=== PATIENT | female | born 1955 | race Caucasian/White ===

== ENCOUNTER 2020-01-10 15:03 | Inpatient (IN) | payer OTHER ==
[~2020-01-10] VITALS: Ht 170.2 cm; Wt 115.2 kg
--- NOTE | 2020-01-10 16:07 | NUR ---
LATE ENTRY DUE TO PATIENT CARE: THIS IS A 64 YO FEMALE COMING IN FOR RIGHT LOWER LEG SWELLING/ERYTHEMA/BLISTERING STARTING TUESDAY AND WORSENING OVER THE WEEKEND. SYMPTOMS STARTED AFTER PLASMA DONATION TUESDAY, PATIENT STATES "THEY FORGOT TO RETURN THE RED BLOOD CELLS AND SALINE". PULSE NOTED VIA DOPPLER, SENSATION AND MOVEMENT INTACT. DENIES ANY MEDICAL HX. MONITORING IN PLACE. VSS, NADN. CALL LIGHT IN REACH. PIV PLACED, LABS AND FIRST SET OF CULTURES DRAWN
[2020-01-10] MEDS ORDERED: SODIUM CHLORIDE FLUSH 10ML SYR IVF ONE (17:00)
[2020-01-10] MEDS ORDERED: PIPERACILLIN/TAZO/PMX 3.375GM 50 ML IVPB ONE (17:00)
--- NOTE | 2020-01-10 17:00 | NUR ---
DELAY IN MD ORDERS, WAITING FOR 2 SETS OF XULTURES TO BE DRAWN PRIOR TO ABX ADMIN
[2020-01-10 17:09] LABS: BASOPHILS # (AUTO) 0.03 x10^3/uL (0-0.1); BASOPHILS % (AUTO) 0 % (0-1); EOSINOPHILS # (AUTO) 0.21 x10^3/uL (0-0.4); EOSINOPHILS % (AUTO) 2 % (1-7); LYMPHOCYTES # (AUTO) 0.96 x10^3/uL (1-3.4); LYMPHOCYTES % (AUTO) 10 % (22-44); MD NO; MEAN CORPUSCULAR HGB CONC 32.8 g/dL (32.4-35.8); MEAN CORPUSCULAR VOLUME 91.2 fL (80-100); MEAN PLATELET VOLUME 8.4 fL (7.4-10.4); MONOCYTES # (AUTO) 0.46 x10^3/uL (0.2-0.8); MONOCYTES % (AUTO) 5 % (2-9); NEUTROPHILS # (AUTO) 7.56 x10^3/uL (1.8-6.8); NEUTROPHILS % (AUTO) 82 % (42-75); PLATELET COUNT 174 x10^3/uL (130-400); RED BLOOD COUNT 3.84 x10^6/uL (3.82-5.3); RED CELL DISTRIBUTION WIDTH 15.5 % (9.6-15.2)
[2020-01-10 17:22] LABS: ALBUMIN 2.1 g/dL (3.4-5.0); ANION GAP 7 mmol/L (5-15); CALCIUM 8.8 mg/dL (8.5-10.1); CHLORIDE 106 mmol/L (98-107); CREATININE 1.02 mg/dL (0.55-1.02)
[2020-01-10] MEDS ORDERED: PIPERACILLIN/TAZO/PMX 3.375GM 50 ML ONE (17:26)
--- NOTE | 2020-01-10 17:57 | NUR ---
BLOOD CULTURES X2 DRAWN PRIOR TO ABX ADMIN
--- NOTE | 2020-01-10 18:52 | NUR ---
Report given to BIPIN Gallardo. Plan of care discussed
[2020-01-10] MEDS ORDERED: SODIUM CHLORIDE 0.9% 1,000 ML IV ONE (19:01)
--- NOTE | 2020-01-10 19:16 | NUR ---
Report received from BIPIN Oliveira. This RN to assume care.
[2020-01-10] MEDS ORDERED: SODIUM CHLORIDE FLUSH 10ML SYR IVF PRN (19:30)
[2020-01-10] MEDS ORDERED: VANCOMYCIN PER PHARMACY MC PRN (20:00)
[2020-01-10] MEDS ORDERED: DOCUSATE 100 MG CAPSULE PO PRN (20:00)
[2020-01-10] MEDS ORDERED: LABETALOL 5MG/ML, 20ML IVPush PRN (20:00)
[2020-01-10] MEDS ORDERED: BISACODYL 10 MG SUPP PR PRN (20:00)
[2020-01-10] MEDS ORDERED: KETOROLAC 30 MG/1 ML IV PRN (20:00)
[2020-01-10] MEDS ORDERED: POLYETHYLENE GLYCOL 17 GM PACKET PO PRN (20:00)
--- NOTE | 2020-01-10 20:08 | NUR ---
Provided meal tray to patient.
--- NOTE | 2020-01-10 21:12 | NUR ---
Assisted patient to bedside commode. Patient able to bear weight successfully on left leg and slide right leg without assistance.
--- NOTE | 2020-01-10 21:40 | NUR ---
Report given to BIPIN Owens. Patient transferred to room 373.
[2020-01-10 22:48] VITALS: BP 109/73
[2020-01-10] MEDS: HEPARIN 5,000 UNITS/ML, 1ML SQ SCH (22:50)
[2020-01-10] MEDS: IBUPROFEN 600 MG TABLET PO PRN (22:50)
[2020-01-10] MEDS ORDERED: PHARMACOKINETIC MONITORING MC PRN (23:00)
[2020-01-10] MEDS: CEFTRIAXONE PMX 1GM/50ML 50 ML IV SCH (23:16)
[2020-01-10] MEDS ORDERED: VANCOMYCIN 2,500 MG in SODIUM CHLORIDE 0.9% 500 ML IV ONE (23:30)
[2020-01-11] MEDS ORDERED: MAGN400T36 PO (01:34)
[2020-01-11] MEDS ORDERED: LORA-856 PO (01:37)
[2020-01-11] MEDS ORDERED: CHOL500045 PO (01:39)
[2020-01-11] MEDS ORDERED: ASCO500C10 PO (01:41)
[2020-01-11] MEDS: ACETAMINOPHEN 325 MG TABLET PO PRN ×3 (01:52→22:08)
[2020-01-11 01:55] VITALS: BP 115/76
[2020-01-11] MEDS ORDERED: VITA100T PO (04:08)
[2020-01-11] MEDS ORDERED: MULT-508 PO (04:08)
[2020-01-11] MEDS ORDERED: VITA100C8 PO (04:08)
[2020-01-11 05:46] LABS: BASOPHILS # (AUTO) 0.02 x10^3/uL (0-0.1); BASOPHILS % (AUTO) 0 % (0-1); EOSINOPHILS # (AUTO) 0.09 x10^3/uL (0-0.4); EOSINOPHILS % (AUTO) 1 % (1-7); LYMPHOCYTES # (AUTO) 0.81 x10^3/uL (1-3.4); LYMPHOCYTES % (AUTO) 9 % (22-44); MD NO; MEAN CORPUSCULAR HGB CONC 33.3 g/dL (32.4-35.8); MEAN CORPUSCULAR VOLUME 90.1 fL (80-100); MEAN PLATELET VOLUME 8.2 fL (7.4-10.4); MONOCYTES # (AUTO) 0.46 x10^3/uL (0.2-0.8); MONOCYTES % (AUTO) 5 % (2-9); NEUTROPHILS # (AUTO) 7.66 x10^3/uL (1.8-6.8); NEUTROPHILS % (AUTO) 85 % (42-75); PLATELET COUNT 171 x10^3/uL (130-400); RED BLOOD COUNT 3.46 x10^6/uL (3.82-5.3); RED CELL DISTRIBUTION WIDTH 15.3 % (9.6-15.2)
[2020-01-11 05:59] LABS: ANION GAP 6 mmol/L (5-15); CHLORIDE 108 mmol/L (98-107)
[2020-01-11 06:00] LABS: CREATININE 0.96 mg/dL (0.55-1.02)
[2020-01-11] MEDS: HEPARIN 5,000 UNITS/ML, 1ML SQ SCH ×3 (06:05→22:52)
[2020-01-11 06:26] LABS: CALCIUM 8.3 mg/dL (8.5-10.1)
[2020-01-11 07:35] VITALS: BP 115/73
[2020-01-11] MEDS: IBUPROFEN 600 MG TABLET PO PRN ×2 (12:05→19:40)
[2020-01-11 12:31] VITALS: BP 126/85
[2020-01-11 21:00] VITALS: BP 125/74
[2020-01-11] MEDS: CEFTRIAXONE PMX 1GM/50ML 50 ML IV SCH (22:52)
[2020-01-12 02:29] VITALS: BP 106/64
[2020-01-12] MEDS: IBUPROFEN 600 MG TABLET PO PRN ×3 (04:30→19:56)
[2020-01-12 05:15] LABS: ANION GAP 7 mmol/L (5-15); CALCIUM 8.3 mg/dL (8.5-10.1); CHLORIDE 106 mmol/L (98-107); CREATININE 0.94 mg/dL (0.55-1.02)
[2020-01-12 05:17] LABS: BASOPHILS # (AUTO) 0.01 x10^3/uL (0-0.1); BASOPHILS % (AUTO) 0 % (0-1); EOSINOPHILS # (AUTO) 0.06 x10^3/uL (0-0.4); EOSINOPHILS % (AUTO) 1 % (1-7); LYMPHOCYTES # (AUTO) 1.15 x10^3/uL (1-3.4); LYMPHOCYTES % (AUTO) 14 % (22-44); MD NO; MEAN CORPUSCULAR HEMOGLOBIN 29.6 pg (27.0-34.8); MEAN CORPUSCULAR HGB CONC 33.2 g/dL (32.4-35.8); MEAN CORPUSCULAR VOLUME 89.3 fL (80-100); MEAN PLATELET VOLUME 7.8 fL (7.4-10.4); MONOCYTES # (AUTO) 0.63 x10^3/uL (0.2-0.8); MONOCYTES % (AUTO) 8 % (2-9); NEUTROPHILS # (AUTO) 6.64 x10^3/uL (1.8-6.8); NEUTROPHILS % (AUTO) 78 % (42-75); PLATELET COUNT 186 x10^3/uL (130-400); RED BLOOD COUNT 3.59 x10^6/uL (3.82-5.3); RED CELL DISTRIBUTION WIDTH 14.7 % (9.6-15.2)
[2020-01-12] MEDS ORDERED: DIPHTHERIA-TETANUS ADULT 0.5ML IM-VACC ONE (06:00)
[2020-01-12] MEDS: HEPARIN 5,000 UNITS/ML, 1ML SQ SCH ×3 (06:08→23:13)
[2020-01-12 06:40] VITALS: BP 130/78
[2020-01-12] MEDS ORDERED: VANCOMYCIN 1,800 MG in SODIUM CHLORIDE 0.9% 250 ML IV SCH (12:30)
[2020-01-12 12:47] VITALS: BP 109/77
[2020-01-12] MEDS: FUROSEMIDE 40 MG/4 ML IV ONE ×2 (15:00→15:14)
[2020-01-12] MEDS: CLINDAMYCIN 300 MG CAPSULE PO SCH ×2 (17:39→23:13)
[2020-01-12 20:00] VITALS: BP 138/75
[2020-01-12] MEDS: ACETAMINOPHEN 325 MG TABLET PO PRN (23:13)
[2020-01-13 01:20] VITALS: BP 109/71
[2020-01-13] MEDS: CLINDAMYCIN 300 MG CAPSULE PO SCH ×2 (05:05→10:18)
[2020-01-13] MEDS: IBUPROFEN 600 MG TABLET PO PRN ×3 (05:05→19:40)
[2020-01-13] MEDS: HEPARIN 5,000 UNITS/ML, 1ML SQ SCH ×2 (06:22→15:34)
[2020-01-13 06:32] LABS: BASOPHILS % (AUTO) 0 % (0-1); EOSINOPHILS # (AUTO) 0.17 x10^3/uL (0-0.4); EOSINOPHILS % (AUTO) 3 % (1-7); LYMPHOCYTES # (AUTO) 0.79 x10^3/uL (1-3.4); LYMPHOCYTES % (AUTO) 12 % (22-44); MD NO; MEAN CORPUSCULAR HEMOGLOBIN 29.8 pg (27.0-34.8); MEAN CORPUSCULAR HGB CONC 33.4 g/dL (32.4-35.8); MEAN CORPUSCULAR VOLUME 89.3 fL (80-100); MEAN PLATELET VOLUME 7.3 fL (7.4-10.4); MONOCYTES # (AUTO) 0.63 x10^3/uL (0.2-0.8); MONOCYTES % (AUTO) 9 % (2-9); NEUTROPHILS # (AUTO) 5.14 x10^3/uL (1.8-6.8); NEUTROPHILS % (AUTO) 76 % (42-75); PLATELET COUNT 204 x10^3/uL (130-400); RED BLOOD COUNT 3.34 x10^6/uL (3.82-5.3); RED CELL DISTRIBUTION WIDTH 14.4 % (9.6-15.2)
[2020-01-13 06:37] LABS: ANION GAP 6 mmol/L (5-15); CALCIUM 8.1 mg/dL (8.5-10.1); CHLORIDE 109 mmol/L (98-107)
[2020-01-13 06:38] LABS: CREATININE 0.88 mg/dL (0.55-1.02)
[2020-01-13 06:52] VITALS: BP 106/71
[2020-01-13] MEDS: FUROSEMIDE 40 MG TABLET PO SCH (10:18)
[2020-01-13] MEDS: ACETAMINOPHEN 325 MG TABLET PO PRN ×2 (10:18→15:39)
[2020-01-13 12:25] VITALS: BP 127/79
[2020-01-13] MEDS: CLINDAMYCIN PMX 900MG/50ML 50 ML IV SCH (16:40)
[2020-01-13] MEDS ORDERED: metFORMIN 500 MG TABLET PO ONE (17:00)
[2020-01-13 19:17] VITALS: BP 139/86
[2020-01-13] MEDS ORDERED: GABAPENTIN 300 MG CAPSULE PO ONE (20:00)
[2020-01-14 00:37] VITALS: BP 121/77
[2020-01-14] MEDS: CLINDAMYCIN PMX 900MG/50ML 50 ML IV SCH ×3 (00:42→16:36)
[2020-01-14] MEDS: HEPARIN 5,000 UNITS/ML, 1ML SQ SCH ×3 (00:42→16:36)
[2020-01-14 06:26] LABS: BASOPHILS # (AUTO) 0.02 x10^3/uL (0-0.1); BASOPHILS % (AUTO) 0 % (0-1); EOSINOPHILS # (AUTO) 0.11 x10^3/uL (0-0.4); EOSINOPHILS % (AUTO) 2 % (1-7); LYMPHOCYTES # (AUTO) 1.08 x10^3/uL (1-3.4); LYMPHOCYTES % (AUTO) 14 % (22-44); MD NO; MEAN CORPUSCULAR HEMOGLOBIN 29.9 pg (27.0-34.8); MEAN CORPUSCULAR HGB CONC 33.8 g/dL (32.4-35.8); MEAN CORPUSCULAR VOLUME 88.6 fL (80-100); MEAN PLATELET VOLUME 7.3 fL (7.4-10.4); MONOCYTES # (AUTO) 0.68 x10^3/uL (0.2-0.8); MONOCYTES % (AUTO) 9 % (2-9); NEUTROPHILS # (AUTO) 5.68 x10^3/uL (1.8-6.8); NEUTROPHILS % (AUTO) 75 % (42-75); PLATELET COUNT 258 x10^3/uL (130-400); RED BLOOD COUNT 3.05 x10^6/uL (3.82-5.3); RED CELL DISTRIBUTION WIDTH 14.7 % (9.6-15.2)
[2020-01-14 06:29] LABS: CHLORIDE 107 mmol/L (98-107)
[2020-01-14 06:37] LABS: ANION GAP 7 mmol/L (5-15); CALCIUM 7.7 mg/dL (8.5-10.1); CREATININE 0.81 mg/dL (0.55-1.02)
[2020-01-14 07:31] VITALS: BP 102/70
[2020-01-14] MEDS: ACETAMINOPHEN 325 MG TABLET PO PRN ×3 (08:02→19:47)
[2020-01-14] MEDS: FUROSEMIDE 40 MG TABLET PO SCH (08:04)
[2020-01-14] MEDS ORDERED: FUROSEMIDE 20 MG/2 ML IV ONE (08:30)
[2020-01-14] MEDS: IBUPROFEN 600 MG TABLET PO PRN ×2 (10:19→16:36)
[2020-01-14 13:21] VITALS: BP 124/78
[2020-01-14] MEDS: metFORMIN 500 MG TABLET PO SCH (16:36)
[2020-01-14] MEDS ORDERED: GABAPENTIN 300 MG CAPSULE PO SCH (21:00)
[2020-01-14 21:23] VITALS: BP 117/83
[2020-01-15] MEDS: CLINDAMYCIN PMX 900MG/50ML 50 ML IV SCH ×3 (00:10→16:02)
[2020-01-15] MEDS: HEPARIN 5,000 UNITS/ML, 1ML SQ SCH ×3 (00:10→16:02)
[2020-01-15] MEDS: IBUPROFEN 600 MG TABLET PO PRN ×3 (00:10→13:54)
[2020-01-15 02:14] VITALS: BP 142/92
[2020-01-15 05:51] LABS: ANION GAP 5 mmol/L (5-15); CALCIUM 7.7 mg/dL (8.5-10.1); CHLORIDE 106 mmol/L (98-107); CREATININE 0.76 mg/dL (0.55-1.02)
[2020-01-15 05:52] LABS: BASOPHILS # (AUTO) 0.01 x10^3/uL (0-0.1); BASOPHILS % (AUTO) 0 % (0-1); EOSINOPHILS # (AUTO) 0.13 x10^3/uL (0-0.4); EOSINOPHILS % (AUTO) 2 % (1-7); LYMPHOCYTES # (AUTO) 1.08 x10^3/uL (1-3.4); LYMPHOCYTES % (AUTO) 16 % (22-44); MD NO; MEAN CORPUSCULAR HEMOGLOBIN 30.1 pg (27.0-34.8); MEAN CORPUSCULAR HGB CONC 34.2 g/dL (32.4-35.8); MEAN CORPUSCULAR VOLUME 87.9 fL (80-100); MEAN PLATELET VOLUME 7.3 fL (7.4-10.4); MONOCYTES # (AUTO) 0.59 x10^3/uL (0.2-0.8); MONOCYTES % (AUTO) 9 % (2-9); NEUTROPHILS # (AUTO) 5.14 x10^3/uL (1.8-6.8); NEUTROPHILS % (AUTO) 74 % (42-75); PLATELET COUNT 288 x10^3/uL (130-400); RED BLOOD COUNT 3.06 x10^6/uL (3.82-5.3); RED CELL DISTRIBUTION WIDTH 14.9 % (9.6-15.2)
[2020-01-15 07:31] VITALS: BP 105/69
[2020-01-15] MEDS: GABAPENTIN 300 MG CAPSULE PO SCH ×4 (07:55→19:47)
[2020-01-15] MEDS: FUROSEMIDE 40 MG TABLET PO SCH (07:56)
[2020-01-15] MEDS ORDERED: OMNIPAQUE 350 MG/ML, 150 ML BOTTLE ONE (09:39)
[2020-01-15] MEDS: ACETAMINOPHEN 325 MG TABLET PO PRN ×2 (11:49→19:48)
[2020-01-15 12:48] VITALS: BP 118/78
[2020-01-15 19:07] VITALS: BP 142/66
[2020-01-16] MEDS: CLINDAMYCIN PMX 900MG/50ML 50 ML IV SCH ×3 (00:14→18:06)
[2020-01-16] MEDS: HEPARIN 5,000 UNITS/ML, 1ML SQ SCH ×3 (00:14→18:07)
[2020-01-16] MEDS: IBUPROFEN 600 MG TABLET PO PRN ×3 (00:14→19:36)
[2020-01-16 00:48] VITALS: BP 102/67
[2020-01-16 05:36] LABS: BASOPHILS # (AUTO) 0.02 x10^3/uL (0-0.1); BASOPHILS % (AUTO) 0 % (0-1); EOSINOPHILS # (AUTO) 0.08 x10^3/uL (0-0.4); EOSINOPHILS % (AUTO) 1 % (1-7); LYMPHOCYTES # (AUTO) 1.46 x10^3/uL (1-3.4); LYMPHOCYTES % (AUTO) 19 % (22-44); MD NO; MEAN CORPUSCULAR HEMOGLOBIN 29.5 pg (27.0-34.8); MEAN CORPUSCULAR HGB CONC 32.9 g/dL (32.4-35.8); MEAN CORPUSCULAR VOLUME 89.7 fL (80-100); MEAN PLATELET VOLUME 7.1 fL (7.4-10.4); MONOCYTES # (AUTO) 0.74 x10^3/uL (0.2-0.8); MONOCYTES % (AUTO) 10 % (2-9); NEUTROPHILS # (AUTO) 5.42 x10^3/uL (1.8-6.8); NEUTROPHILS % (AUTO) 70 % (42-75); PLATELET COUNT 367 x10^3/uL (130-400); RED BLOOD COUNT 3.09 x10^6/uL (3.82-5.3); RED CELL DISTRIBUTION WIDTH 14.7 % (9.6-15.2)
[2020-01-16 07:25] VITALS: BP 106/68
[2020-01-16] MEDS: GABAPENTIN 300 MG CAPSULE PO SCH ×4 (08:33→19:36)
[2020-01-16] MEDS: FUROSEMIDE 40 MG TABLET PO SCH (08:33)
[2020-01-16 13:30] VITALS: BP 91/60
[2020-01-16] MEDS: metFORMIN 500 MG TABLET PO SCH (17:00)
[2020-01-16 18:50] VITALS: BP 132/78
[2020-01-16] MEDS: ACETAMINOPHEN 325 MG TABLET PO PRN (22:57)
[2020-01-17 00:33] VITALS: BP 130/69
[2020-01-17] MEDS: HEPARIN 5,000 UNITS/ML, 1ML SQ SCH ×3 (02:01→17:51)
[2020-01-17] MEDS: CLINDAMYCIN PMX 900MG/50ML 50 ML IV SCH ×3 (02:01→17:51)
[2020-01-17] MEDS: ACETAMINOPHEN 325 MG TABLET PO PRN ×2 (04:37→19:36)
[2020-01-17 05:13] LABS: BASOPHILS # (AUTO) 0.02 x10^3/uL (0-0.1); BASOPHILS % (AUTO) 0 % (0-1); EOSINOPHILS # (AUTO) 0.14 x10^3/uL (0-0.4); EOSINOPHILS % (AUTO) 2 % (1-7); LYMPHOCYTES # (AUTO) 1.62 x10^3/uL (1-3.4); LYMPHOCYTES % (AUTO) 20 % (22-44); MD NO; MEAN CORPUSCULAR HEMOGLOBIN 29.6 pg (27.0-34.8); MEAN CORPUSCULAR HGB CONC 33.1 g/dL (32.4-35.8); MEAN CORPUSCULAR VOLUME 89.4 fL (80-100); MEAN PLATELET VOLUME 7.2 fL (7.4-10.4); MONOCYTES # (AUTO) 0.84 x10^3/uL (0.2-0.8); MONOCYTES % (AUTO) 10 % (2-9); NEUTROPHILS # (AUTO) 5.48 x10^3/uL (1.8-6.8); NEUTROPHILS % (AUTO) 68 % (42-75); PLATELET COUNT 438 x10^3/uL (130-400); RED BLOOD COUNT 3.01 x10^6/uL (3.82-5.3); RED CELL DISTRIBUTION WIDTH 14.5 % (9.6-15.2)
[2020-01-17 05:18] LABS: ANION GAP 7 mmol/L (5-15); CALCIUM 7.7 mg/dL (8.5-10.1); CHLORIDE 103 mmol/L (98-107)
[2020-01-17 06:52] VITALS: BP 100/59
[2020-01-17] MEDS: IBUPROFEN 600 MG TABLET PO PRN ×2 (09:34→17:52)
[2020-01-17] MEDS: GABAPENTIN 300 MG CAPSULE PO SCH ×4 (09:34→19:31)
[2020-01-17] MEDS: FUROSEMIDE 40 MG TABLET PO SCH (09:34)
[2020-01-17 15:22] VITALS: BP 101/68
[2020-01-17] MEDS: metFORMIN 500 MG TABLET PO SCH (17:52)
[2020-01-17 19:19] VITALS: BP 116/76
[2020-01-18 01:53] VITALS: BP 102/68
[2020-01-18] MEDS: CLINDAMYCIN PMX 900MG/50ML 50 ML IV SCH ×3 (02:16→18:00)
[2020-01-18] MEDS: HEPARIN 5,000 UNITS/ML, 1ML SQ SCH ×3 (02:16→17:22)
[2020-01-18] MEDS: IBUPROFEN 600 MG TABLET PO PRN ×3 (02:34→19:49)
[2020-01-18] MEDS: ACETAMINOPHEN 325 MG TABLET PO PRN ×3 (05:19→22:25)
[2020-01-18 05:55] LABS: BASOPHILS # (AUTO) 0.03 x10^3/uL (0-0.1); BASOPHILS % (AUTO) 0 % (0-1); EOSINOPHILS # (AUTO) 0.06 x10^3/uL (0-0.4); EOSINOPHILS % (AUTO) 1 % (1-7); LYMPHOCYTES # (AUTO) 1.32 x10^3/uL (1-3.4); LYMPHOCYTES % (AUTO) 19 % (22-44); MD NO; MEAN CORPUSCULAR HEMOGLOBIN 29.2 pg (27.0-34.8); MEAN CORPUSCULAR HGB CONC 32.8 g/dL (32.4-35.8); MEAN CORPUSCULAR VOLUME 89.1 fL (80-100); MONOCYTES # (AUTO) 0.71 x10^3/uL (0.2-0.8); MONOCYTES % (AUTO) 10 % (2-9); NEUTROPHILS # (AUTO) 4.88 x10^3/uL (1.8-6.8); NEUTROPHILS % (AUTO) 70 % (42-75); PLATELET COUNT 475 x10^3/uL (130-400); RED BLOOD COUNT 3.02 x10^6/uL (3.82-5.3); RED CELL DISTRIBUTION WIDTH 14.3 % (9.6-15.2)
[2020-01-18 06:02] LABS: ANION GAP 5 mmol/L (5-15); CALCIUM 8.5 mg/dL (8.5-10.1); CHLORIDE 103 mmol/L (98-107); CREATININE 0.94 mg/dL (0.55-1.02)
[2020-01-18 07:30] VITALS: BP 104/70
[2020-01-18] MEDS: GABAPENTIN 300 MG CAPSULE PO SCH ×4 (08:00→19:49)
[2020-01-18] MEDS ORDERED: GABAPENTIN 100 MG CAPSULE ONE (08:50)
[2020-01-18] MEDS: FUROSEMIDE 20 MG TABLET PO SCH (08:58)
[2020-01-18 12:00] VITALS: BP 116/61
[2020-01-18] MEDS: metFORMIN 500 MG TABLET PO SCH (17:21)
[2020-01-18 19:17] VITALS: BP 103/67
[2020-01-19 00:53] VITALS: BP 124/77
[2020-01-19] MEDS: HEPARIN 5,000 UNITS/ML, 1ML SQ SCH ×2 (02:10→09:50)
[2020-01-19] MEDS: CLINDAMYCIN PMX 900MG/50ML 50 ML IV SCH ×2 (02:10→09:49)
[2020-01-19] MEDS: IBUPROFEN 600 MG TABLET PO PRN (02:13)
[2020-01-19 05:25] LABS: BASOPHILS # (AUTO) 0.03 x10^3/uL (0-0.1); BASOPHILS % (AUTO) 0 % (0-1); EOSINOPHILS # (AUTO) 0.11 x10^3/uL (0-0.4); EOSINOPHILS % (AUTO) 1 % (1-7); LYMPHOCYTES # (AUTO) 1.56 x10^3/uL (1-3.4); LYMPHOCYTES % (AUTO) 20 % (22-44); MD NO; MEAN CORPUSCULAR HEMOGLOBIN 29.2 pg (27.0-34.8); MEAN CORPUSCULAR HGB CONC 32.7 g/dL (32.4-35.8); MEAN CORPUSCULAR VOLUME 89.2 fL (80-100); MEAN PLATELET VOLUME 7.1 fL (7.4-10.4); MONOCYTES # (AUTO) 0.76 x10^3/uL (0.2-0.8); MONOCYTES % (AUTO) 10 % (2-9); NEUTROPHILS # (AUTO) 5.48 x10^3/uL (1.8-6.8); NEUTROPHILS % (AUTO) 69 % (42-75); PLATELET COUNT 522 x10^3/uL (130-400); RED BLOOD COUNT 2.86 x10^6/uL (3.82-5.3); RED CELL DISTRIBUTION WIDTH 14.1 % (9.6-15.2)
[2020-01-19 05:45] LABS: CHLORIDE 105 mmol/L (98-107)
[2020-01-19 05:58] LABS: ANION GAP 8 mmol/L (5-15); CALCIUM 8.3 mg/dL (8.5-10.1); CREATININE 0.92 mg/dL (0.55-1.02)
[2020-01-19 06:27] VITALS: BP 90/55
[2020-01-19] MEDS: ACETAMINOPHEN 325 MG TABLET PO PRN (09:49)
[2020-01-19] MEDS: FUROSEMIDE 20 MG TABLET PO SCH (09:49)
[2020-01-19] MEDS: GABAPENTIN 300 MG CAPSULE PO SCH ×3 (09:50→15:51)
[2020-01-19] MEDS ORDERED: GABA300C PO ×2 (09:59)
[2020-01-19] MEDS ORDERED: CLIN300C8 PO (09:59)
[2020-01-19 15:30] VITALS: BP 146/81
[2020-01-19] MEDS: metFORMIN 500 MG TABLET PO SCH (15:51)
== END 2020-01-19 16:34 | disposition home or self-care (01) | DRG 603 ==
LOC: ED 19:28 → EDIP 19:43 → 3N 22:00
PROVIDERS: ADMIT Family Medicine; ATTEND Family Medicine
DX: L03.115 Cellulitis of right lower limb (principal); F10.21 Alcohol dependence, in remission; R26.81 Unsteadiness on feet; Z79.899 Other long term (current) drug therapy; Z87.891 Personal history of nicotine dependence; Z79.84 Long term (current) use of oral hypoglycemic drugs; E66.9 Obesity, unspecified; Z68.39 Body mass index [BMI] 39.0-39.9, adult
CPT/HCPCS: 36415; 80048; 82040; 83036; 83605; 84145; 85025; 87040; 87081; 90714; 93970; 99285; G0378; J0696; J1644; J1940; J2543; J3370; Q9967; J7040; J7050

== ENCOUNTER 2020-01-25 20:17 | Inpatient (IN) | payer MEDICAID, OTHER ==
[~2020-01-25] VITALS: Ht 175.3 cm; Wt 110.0 kg
[~2020-01-25 20:17] MED LIST: ASCO500C10 PO; CHOL500045 PO; CLIN300C8 PO; GABA300C PO; LORA-856 PO; MAGN400T36 PO; MULT-508 PO; VITA100C8 PO; VITA100T PO
[2020-01-25 23:46] LABS: ALANINE AMINOTRANSFERASE 13 U/L (12-78); ALBUMIN 2.4 g/dL (3.4-5.0); ANION GAP 10 mmol/L (5-15); CALCIUM 8.6 mg/dL (8.5-10.1); CHLORIDE 104 mmol/L (98-107); CREATININE 1.17 mg/dL (0.55-1.02)
[2020-01-25 23:57] LABS: ALKALINE PHOSPHATASE 65 U/L (45-117); BILIRUBIN,TOTAL 0.6 mg/dL (0.2-1.0); TOTAL PROTEIN 7.8 g/dL (6.4-8.2); TROPONIN I < 0.015 ng/mL (0.000-0.045)
[2020-01-26 00:10] LABS: BASOPHILS % (AUTO) 1 % (0-1); EOSINOPHILS # (AUTO) 0.04 x10^3/uL (0-0.4); EOSINOPHILS % (AUTO) 0 % (1-7); LYMPHOCYTES # (AUTO) 0.97 x10^3/uL (1-3.4); LYMPHOCYTES % (AUTO) 6 % (22-44); MD SCAN; MEAN CORPUSCULAR HEMOGLOBIN 28.7 pg (27.0-34.8); MEAN PLATELET VOLUME 7.1 fL (7.4-10.4); MONOCYTES # (AUTO) 0.97 x10^3/uL (0.2-0.8); MONOCYTES % (AUTO) 6 % (2-9); NEUTROPHILS # (AUTO) 14.27 x10^3/uL (1.8-6.8); NEUTROPHILS % (AUTO) 87 % (42-75); PLATELET COUNT 553 x10^3/uL (130-400); RED BLOOD COUNT 3.65 x10^6/uL (3.82-5.3)
--- NOTE | 2020-01-26 00:54 | NUR ---
pt wheeled back to room via [facility], transferred to [facility] via stand by assist. pt is NAD, resting on [facility], c/o severe chest pain and discomfort, states it starts in her ribs and travels up to her shoulder. c/o of chills and body weakness. Also states she is having nausea, no vomitting at this time. pulses radial 2+, gross neuro intact. WCTM. pt placed on spo2/bp/ecg monitoring.
[2020-01-26] MEDS ORDERED: ONDANSETRON 2MG/ML, 2ML ONE ×2 (01:06→10:05)
[2020-01-26] MEDS ORDERED: MORPHINE SULFATE 4 MG/ML, 1ML ONE ×2 (01:06→02:35)
[2020-01-26] MEDS: MORPHINE SULFATE 4 MG/ML, 1ML IVPush PRN ×2 (01:21→02:41)
--- NOTE | 2020-01-26 01:29 | NUR ---
pt medicated per jul, , to US via karl, no change in condition. WCTM.
[2020-01-26] MEDS ORDERED: SODIUM CHLORIDE 0.9% 1,000ML IVBOLUS ONE (01:30)
[2020-01-26] MEDS ORDERED: ONDANSETRON 2MG/ML, 2ML IVPush ONE (01:30)
--- NOTE | 2020-01-26 02:28 | NUR ---
pt resting on gurney. still c/o pain, pt medicated per mar, NAD, VSS, WCTM. pt to be admitted
[2020-01-26] MEDS ORDERED: METRONIDAZOLE PMX 500MG/100ML 100 ML IV ONE (02:30)
[2020-01-26] MEDS ORDERED: CEFTRIAXONE PMX 1GM/50ML 50 ML IV ONE (02:30)
[2020-01-26] MEDS ORDERED: CEFTRIAXONE PMX 1GM/50ML 50 ML ONE (02:35)
[2020-01-26] MEDS ORDERED: METRONIDAZOLE PMX 500MG/100ML 100 ML ONE (02:37)
[2020-01-26] MEDS ORDERED: GABA300C PO (02:45)
--- NOTE | 2020-01-26 03:03 | NUR ---
pt given oral swabs and chapstick for comfort. resting on gurney, denies additional needs at this time. pain is decreased after intervention, pt to be admitted, wctm.
--- NOTE | 2020-01-26 03:22 | NUR ---
report called to rose womack, pt to be transferred to floor when labs have resulted. NAD. ROTHMAN.
[2020-01-26] MEDS ORDERED: ONDANSETRON 2MG/ML, 2ML IVPush PRN ×2 (04:00→10:30)
[2020-01-26] MEDS ORDERED: morphine SULFATE 10 MG/ML, 1ML IVPush PRN (04:00)
[2020-01-26] MEDS: SODIUM CHLORIDE 0.9% 1,000 ML IV SCH ×3 (06:00→14:41)
[2020-01-26 06:02] LABS: INTERNATIONAL NORMALIZED RATIO 1.03 (0.93-1.1); PROTHROMBIN TIME 10.6 Seconds (9.6-11.5)
[2020-01-26 06:58] VITALS: BP 143/86
[2020-01-26] MEDS ORDERED: FENTANYL PF 250 MCG/5ML ONE (09:56)
[2020-01-26] MEDS ORDERED: METRONIDAZOLE PMX 500MG/100ML 100 ML IV SCH (10:00)
[2020-01-26] MEDS ORDERED: MIDAZOLAM 1 MG/ML, 2ML ONE (10:04)
[2020-01-26] MEDS ORDERED: PROPOFOL 10 MG/ML, 20ML ONE (10:05)
[2020-01-26] MEDS ORDERED: DEXAMETHASONE 4 MG/ML, 1ML ONE (10:05)
[2020-01-26] MEDS ORDERED: CEFAZOLIN 1,000 MG ONE (10:05)
[2020-01-26] MEDS ORDERED: SUCCINYLCHOLINE 20 MG/ML, 10ML ONE (10:05)
[2020-01-26] MEDS ORDERED: GLYCOPYRROLATE 0.2MG/1ML, 5ML ONE (10:05)
[2020-01-26] MEDS ORDERED: NEOSTIGMINE 1 MG/ML, 10ML ONE (10:05)
[2020-01-26] MEDS ORDERED: PROPOFOL 50 ML ONE (10:06)
[2020-01-26] MEDS ORDERED: ROCURONIUM 10MG/ML,5ML ONE (10:08)
[2020-01-26] MEDS ORDERED: CEFOTETAN 2 GM ONE (10:08)
[2020-01-26] MEDS ORDERED: KETOROLAC 30 MG/1 ML ONE (10:08)
[2020-01-26] MEDS ORDERED: BUPIVACAINE 0.25% INJ ONE (10:15)
[2020-01-26] MEDS ORDERED: ACETAMINOPHEN 325 MG TABLET PO PRN (10:30)
[2020-01-26] MEDS ORDERED: HYDROmorphone 1 MG/ML, 1ML INJ IVPush PRN (10:30)
[2020-01-26] MEDS ORDERED: EPHEDRINE 50 MG/ML, 1ML IVPush PRN (10:30)
[2020-01-26] MEDS ORDERED: OXYcodone 5 MG/5 ML ORAL.SOL UDC PO PRN (10:30)
[2020-01-26] MEDS ORDERED: MIDAZOLAM 1 MG/ML, 2ML IV PRN (10:30)
[2020-01-26] MEDS ORDERED: LABETALOL 5MG/ML, 20ML IV PRN (10:30)
[2020-01-26] MEDS ORDERED: MEPERIDINE/PF 25MG/0.5ML IVPush PRN (10:30)
[2020-01-26] MEDS ORDERED: PROMETHAZINE 25 MG/ML, 1ML IVPush PRN (10:30)
[2020-01-26] MEDS ORDERED: hydrALAzine 20 MG/ML, 1ML IV PRN (10:30)
[2020-01-26] MEDS ORDERED: FENTANYL PF 100 MCG/2ML ONE (11:13)
[2020-01-26] MEDS ORDERED: HYDROmorphone 1 MG/ML, 1ML INJ ONE (11:14)
[2020-01-26] MEDS: FENTANYL PF 100 MCG/2ML IV PRN ×2 (11:15→11:20)
[2020-01-26] MEDS: LACTATED RINGERS 1,000 ML IV SCH ×2 (13:42→21:00)
[2020-01-26] MEDS: PIPERACILLIN/TAZO/PMX 3.375GM 50 ML IV SCH ×2 (13:42→21:07)
[2020-01-26] MEDS: PANTOPRAZOLE 80 MG in SODIUM CHLORIDE 0.9% 100 ML IV SCH ×2 (14:41→23:32)
[2020-01-26] MEDS: morphine SULFATE 10 MG/ML, 1ML IV PRN ×3 (15:54→22:26)
[2020-01-27] MEDS ORDERED: CEFTRIAXONE PMX 1GM/50ML 50 ML IV SCH (02:30)
[2020-01-27 04:52] LABS: CHLORIDE 108 mmol/L (98-107)
[2020-01-27 04:58] LABS: ALANINE AMINOTRANSFERASE 29 U/L (12-78); ALBUMIN 1.6 g/dL (3.4-5.0); ALKALINE PHOSPHATASE 45 U/L (45-117); ANION GAP 5 mmol/L (5-15); BILIRUBIN,TOTAL 0.3 mg/dL (0.2-1.0); CHOLESTEROL, TOTAL 73 mg/dL (140-239); CREATININE 0.88 mg/dL (0.55-1.02); HDL CHOL % 51 % (28-40); HDL CHOLESTEROL (DIRECT) 37 mg/dL (40-60); LDL CHOLESTEROL,CALCULATED 26 mg/dL (54-169); LDL/HDL RATIO 0.7 (0.5-3.0); TRIGLYCERIDES 49 mg/dL (50-200); VLDL CHOLESTEROL 10 mg/dL (0-25)
[2020-01-27] MEDS: LACTATED RINGERS 1,000 ML IV SCH ×3 (05:00→20:43)
[2020-01-27] MEDS: morphine SULFATE 10 MG/ML, 1ML IV PRN ×3 (06:09→20:33)
[2020-01-27] MEDS: PIPERACILLIN/TAZO/PMX 3.375GM 50 ML IV SCH ×3 (06:10→20:43)
[2020-01-27 06:36] LABS: MEAN CORPUSCULAR HEMOGLOBIN 28.7 pg (27.0-34.8); MEAN CORPUSCULAR HGB CONC 32.2 g/dL (32.4-35.8); MEAN PLATELET VOLUME 6.7 fL (7.4-10.4); PLATELET COUNT 468 x10^3/uL (130-400); RED BLOOD COUNT 3.06 x10^6/uL (3.82-5.3); RED CELL DISTRIBUTION WIDTH 14.7 % (9.6-15.2)
[2020-01-27 07:22] LABS: BASOPHILS % (AUTO) 0 % (0-1); EOSINOPHILS % (AUTO) 0 % (1-7); LYMPHOCYTES # (AUTO) 0.64 x10^3/uL (1-3.4); LYMPHOCYTES % (AUTO) 5 % (22-44); MD SCAN; MONOCYTES # (AUTO) 0.61 x10^3/uL (0.2-0.8); MONOCYTES % (AUTO) 5 % (2-9); NEUTROPHILS # (AUTO) 12.45 x10^3/uL (1.8-6.8); NEUTROPHILS % (AUTO) 91 % (42-75)
[2020-01-27] MEDS: PANTOPRAZOLE 80 MG in SODIUM CHLORIDE 0.9% 100 ML IV SCH ×2 (08:24→20:13)
[2020-01-27 20:23] VITALS: BP 131/83
[2020-01-28 01:39] VITALS: BP 127/81
[2020-01-28 05:21] LABS: BASOPHILS # (AUTO) 0.01 x10^3/uL (0-0.1); BASOPHILS % (AUTO) 0 % (0-1); EOSINOPHILS # (AUTO) 0.03 x10^3/uL (0-0.4); EOSINOPHILS % (AUTO) 0 % (1-7); LYMPHOCYTES # (AUTO) 1.03 x10^3/uL (1-3.4); LYMPHOCYTES % (AUTO) 8 % (22-44); MD NO; MEAN CORPUSCULAR HEMOGLOBIN 28.8 pg (27.0-34.8); MEAN CORPUSCULAR HGB CONC 32.6 g/dL (32.4-35.8); MEAN PLATELET VOLUME 6.4 fL (7.4-10.4); MONOCYTES # (AUTO) 0.42 x10^3/uL (0.2-0.8); MONOCYTES % (AUTO) 3 % (2-9); NEUTROPHILS # (AUTO) 11.24 x10^3/uL (1.8-6.8); NEUTROPHILS % (AUTO) 88 % (42-75); PLATELET COUNT 434 x10^3/uL (130-400); RED BLOOD COUNT 2.98 x10^6/uL (3.82-5.3); RED CELL DISTRIBUTION WIDTH 14.9 % (9.6-15.2)
[2020-01-28 05:34] LABS: ANION GAP 6 mmol/L (5-15); CALCIUM 8.4 mg/dL (8.5-10.1); CHLORIDE 106 mmol/L (98-107)
[2020-01-28 05:36] LABS: CREATININE 0.81 mg/dL (0.55-1.02)
[2020-01-28] MEDS: PIPERACILLIN/TAZO/PMX 3.375GM 50 ML IV SCH ×3 (05:36→20:31)
[2020-01-28] MEDS: LACTATED RINGERS 1,000 ML IV SCH ×3 (05:37→23:20)
[2020-01-28] MEDS: morphine SULFATE 10 MG/ML, 1ML IV PRN ×3 (05:43→20:29)
[2020-01-28 07:30] VITALS: BP 135/85
[2020-01-28] MEDS: PANTOPRAZOLE 80 MG in SODIUM CHLORIDE 0.9% 100 ML IV SCH ×2 (08:44→20:06)
[2020-01-28 15:02] VITALS: BP 160/88
[2020-01-28 19:54] VITALS: BP 136/85
[2020-01-28] MEDS: BENZOCAINE AEROSOL SPRAY 20%, 60ML TP PRN (23:24)
[2020-01-29 01:16] VITALS: BP 157/81
[2020-01-29] MEDS: BENZOCAINE AEROSOL SPRAY 20%, 60ML TP PRN ×2 (04:46→21:12)
[2020-01-29] MEDS: PIPERACILLIN/TAZO/PMX 3.375GM 50 ML IV SCH ×3 (04:46→21:12)
[2020-01-29] MEDS: PANTOPRAZOLE 80 MG in SODIUM CHLORIDE 0.9% 100 ML IV SCH ×2 (04:46→16:45)
[2020-01-29] MEDS: morphine SULFATE 10 MG/ML, 1ML IV PRN ×4 (05:21→21:12)
[2020-01-29 05:45] LABS: CHLORIDE 102 mmol/L (98-107)
[2020-01-29 05:51] LABS: ALANINE AMINOTRANSFERASE 30 U/L (12-78); ALBUMIN 1.7 g/dL (3.4-5.0); ALKALINE PHOSPHATASE 50 U/L (45-117); ANION GAP 8 mmol/L (5-15); BILIRUBIN,TOTAL 0.4 mg/dL (0.2-1.0); CREATININE 0.71 mg/dL (0.55-1.02); TOTAL PROTEIN 6.1 g/dL (6.4-8.2)
[2020-01-29 06:14] LABS: MEAN CORPUSCULAR HEMOGLOBIN 28.8 pg (27.0-34.8); MEAN CORPUSCULAR HGB CONC 32.8 g/dL (32.4-35.8); MEAN PLATELET VOLUME 6.4 fL (7.4-10.4); PLATELET COUNT 423 x10^3/uL (130-400); RED BLOOD COUNT 3.43 x10^6/uL (3.82-5.3); RED CELL DISTRIBUTION WIDTH 14.7 % (9.6-15.2)
[2020-01-29 06:40] LABS: BASOPHILS % (AUTO) 0 % (0-1); EOSINOPHILS # (AUTO) 0.14 x10^3/uL (0-0.4); EOSINOPHILS % (AUTO) 1 % (1-7); LYMPHOCYTES # (AUTO) 0.88 x10^3/uL (1-3.4); LYMPHOCYTES % (AUTO) 8 % (22-44); MD SCAN; MONOCYTES # (AUTO) 0.59 x10^3/uL (0.2-0.8); MONOCYTES % (AUTO) 5 % (2-9); NEUTROPHILS # (AUTO) 9.74 x10^3/uL (1.8-6.8); NEUTROPHILS % (AUTO) 86 % (42-75)
[2020-01-29 08:27] VITALS: BP 154/84
[2020-01-29] MEDS: LACTATED RINGERS 1,000 ML IV SCH ×2 (09:38→20:22)
[2020-01-29] MEDS ORDERED: MORPHINE SULFATE 4 MG/ML, 1ML ONE ×2 (12:05→16:43)
[2020-01-29 13:30] VITALS: BP 147/80
[2020-01-29] MEDS: LISINOPRIL 10 MG TABLET PO SCH (14:18)
[2020-01-29 19:49] VITALS: BP 138/84
[2020-01-30 00:36] VITALS: BP 130/73
[2020-01-30] MEDS: PANTOPRAZOLE 80 MG in SODIUM CHLORIDE 0.9% 100 ML IV SCH (02:24)
[2020-01-30] MEDS: PIPERACILLIN/TAZO/PMX 3.375GM 50 ML IV SCH ×3 (04:35→21:26)
[2020-01-30] MEDS: morphine SULFATE 10 MG/ML, 1ML IV PRN ×6 (04:35→22:56)
[2020-01-30] MEDS: LACTATED RINGERS 1,000 ML IV SCH (04:36)
[2020-01-30 05:26] LABS: MEAN CORPUSCULAR HEMOGLOBIN 28.5 pg (27.0-34.8); MEAN CORPUSCULAR HGB CONC 32.5 g/dL (32.4-35.8); MEAN PLATELET VOLUME 6.4 fL (7.4-10.4); PLATELET COUNT 373 x10^3/uL (130-400); RED BLOOD COUNT 3.16 x10^6/uL (3.82-5.3); RED CELL DISTRIBUTION WIDTH 14.4 % (9.6-15.2)
[2020-01-30 05:58] LABS: MD YES
[2020-01-30 06:01] LABS: BANDS%(MANUAL) 1 % (0-7); LYMPHS% (MANUAL) 10 % (22-44); MONOS% (MANUAL) 8 % (2-9); MYELOCYTES% (MANUAL) 1 % (0-0); SEGS% (MANUAL) 80 % (42-75)
[2020-01-30 06:02] LABS: <PLATELET ESTIMATE> ADEQUATE; <PLT MORPHOLOGY> NORMAL PLT MORPH; ANISOCYTOSIS 1+; POLYCHROMASIA 1+
[2020-01-30 06:23] VITALS: BP 144/82
[2020-01-30] MEDS ORDERED: MORPHINE SULFATE 4 MG/ML, 1ML ONE ×3 (08:51→16:27)
[2020-01-30] MEDS: PANTOPRAZOLE 40MG TABLET PO SCH (08:55)
[2020-01-30] MEDS: LISINOPRIL 10 MG TABLET PO SCH (08:56)
[2020-01-30 12:09] VITALS: BP 118/80
[2020-01-30] MEDS ORDERED: LACTATED RINGERS 1,000 ML IV SCH (13:00)
[2020-01-30 20:55] VITALS: BP 107/70
[2020-01-31 02:24] VITALS: BP 97/60
[2020-01-31] MEDS: morphine SULFATE 10 MG/ML, 1ML IV PRN (03:10)
[2020-01-31] MEDS: PIPERACILLIN/TAZO/PMX 3.375GM 50 ML IV SCH (05:07)
[2020-01-31] MEDS: PANTOPRAZOLE 40MG TABLET PO SCH (05:11)
[2020-01-31 05:12] LABS: BASOPHILS # (AUTO) 0.02 x10^3/uL (0-0.1); BASOPHILS % (AUTO) 0 % (0-1); EOSINOPHILS # (AUTO) 0.15 x10^3/uL (0-0.4); EOSINOPHILS % (AUTO) 1 % (1-7); LYMPHOCYTES # (AUTO) 1.22 x10^3/uL (1-3.4); LYMPHOCYTES % (AUTO) 11 % (22-44); MD NO; MEAN CORPUSCULAR HEMOGLOBIN 28.5 pg (27.0-34.8); MEAN CORPUSCULAR HGB CONC 32.4 g/dL (32.4-35.8); MEAN PLATELET VOLUME 6.2 fL (7.4-10.4); MONOCYTES # (AUTO) 0.83 x10^3/uL (0.2-0.8); MONOCYTES % (AUTO) 8 % (2-9); NEUTROPHILS # (AUTO) 8.52 x10^3/uL (1.8-6.8); NEUTROPHILS % (AUTO) 79 % (42-75); PLATELET COUNT 379 x10^3/uL (130-400); RED BLOOD COUNT 2.97 x10^6/uL (3.82-5.3); RED CELL DISTRIBUTION WIDTH 14.6 % (9.6-15.2)
[2020-01-31 07:23] VITALS: BP 129/85
[2020-01-31] MEDS: OXYcodone IR 5MG TABLET PO PRN ×2 (07:44→12:03)
[2020-01-31] MEDS ORDERED: AMOXICILLIN/CLAV 875-125MG TABLET PO SCH (09:00)
[2020-01-31] MEDS ORDERED: ENOXAPARIN 40 MG/0.4 ML SQ SCH (11:30)
[2020-01-31] MEDS ORDERED: AMOX1TAB12 PO (11:44)
[2020-01-31] MEDS ORDERED: OXYC5TAB3 PO (11:44)
[2020-01-31] MEDS ORDERED: PANT40TA6 PO (11:44)
[2020-01-31 12:13] VITALS: BP 117/80
== END 2020-01-31 14:39 | DRG 417 ==
LOC: ED 01-26 01:06 → EDIP 01-26 02:47 → 4NE 01-26 03:58 → CCU 01-26 11:58 → 4NE 01-27 11:18
PROVIDERS: ADMIT Family Medicine; ATTEND Hospitalist
PROC: 0DQ64ZZ Repair Stomach, Percutaneous Endoscopic Approach (ICD-10-PCS; 2020-01-26)
PROC: 0FT44ZZ Resection of Gallbladder, Percutaneous Endoscopic Approach (ICD-10-PCS; principal; 2020-01-26 10:00)
DX: K80.00 Calculus of gallbladder with acute cholecystitis without obstruction (principal); K25.5 Chronic or unspecified gastric ulcer with perforation; K26.5 Chronic or unspecified duodenal ulcer with perforation; L03.115 Cellulitis of right lower limb; L03.116 Cellulitis of left lower limb; N17.9 Acute kidney failure, unspecified; K86.1 Other chronic pancreatitis; D63.8 Anemia in other chronic diseases classified elsewhere; E11.65 Type 2 diabetes mellitus with hyperglycemia; D50.0 Iron deficiency anemia secondary to blood loss (chronic); E66.9 Obesity, unspecified; F10.21 Alcohol dependence, in remission; K74.60 Unspecified cirrhosis of liver; Z79.84 Long term (current) use of oral hypoglycemic drugs; Z87.891 Personal history of nicotine dependence; Y90.9 Presence of alcohol in blood, level not specified; Z68.35 Body mass index [BMI] 35.0-35.9, adult
CPT/HCPCS: 36415; 74240; 96361; 96365; 96375; 99285; J3490; 71045; 76536; 76700; 80048; 80053; 80061; 80074; 83690; 84484; 85025; 85610; 87081; 87635; 88304; 93005; G0378; J0690; J0696; J1100; J1885; J2250; J2405; J2543; J2704; J2710; J3010; C9113; J0330; J2270; J7030; J7120

== ENCOUNTER 2020-04-23 09:43 | Inpatient (IN) | payer MEDICAID ==
[~2020-04-23] VITALS: Ht 170.2 cm; Wt 105.9 kg
[~2020-04-23 09:43] MED LIST changes: +AMOX1TAB12 PO; -CLIN300C8 PO; +CLIN300C9 PO; +OXYC5TAB3 PO; +PANT40TA6 PO; +VITA100C10 PO; -VITA100C8 PO
--- NOTE | 2020-04-23 10:25 | NUR ---
THIS IS A 64 YO F W/ C/O RT LWR LEG ULCER X2. WOUND HAS BEEN PRESENT SINCE W/ HX OF WOUND VAC. PT REPORTS WOUND WAS HEALING AND NOT INFECTED. X1 WEEK, WOUNDS W/ MORE DRAINAGE AND PAIN, NO WOUND VAC AT THIS TIME. PT DENIES INITIAL INJURY, DENIES HX OF DM. PT RESTING ON [place] W/ CALL LIGHT IN REACH AND SIDE RAILS UPX2. RESP EVEN AND UNLABORED, NADN.
[2020-04-23] MEDS ORDERED: CEFTRIAXONE PMX 1GM/50ML 50 ML IVPB ONE (10:30)
[2020-04-23] MEDS ORDERED: SODIUM CHLORIDE FLUSH 10ML SYR IVF ONE (10:30)
--- NOTE | 2020-04-23 10:31 | NUR ---
PIV STARTED, 1ST SET OF BLOOD CULTURES DRAWN. PT DECLIND XR UNTIL WOUND DRESSED. PT PLACED OLD GAUZE OVER WOUND, EDUCATED THAT WE NEED PICTURE AND CLEAN GAUZE TO DRESS WOUND. PT INSISTING ON WEARING OLD DRESSING DUE TO LAB AND RAD IN ROOM.
[2020-04-23] MEDS ORDERED: ONDANSETRON 2MG/ML, 2ML ONE (10:43)
[2020-04-23] MEDS ORDERED: MORPHINE SULFATE 4 MG/ML, 1ML ONE (10:44)
[2020-04-23 11:00] LABS: ALBUMIN 3.3 g/dL (3.4-5.0); ANION GAP 6 mmol/L (5-15); BASOPHILS % (AUTO) 0 % (0-1); CALCIUM 8.9 mg/dL (8.5-10.1); CHLORIDE 107 mmol/L (98-107); CREATININE 1.08 mg/dL (0.55-1.02); EOSINOPHILS % (AUTO) 2 % (1-7); LYMPHOCYTES % (AUTO) 17 % (22-44); MEAN CORPUSCULAR HEMOGLOBIN 27.6 pg (27.0-34.8); MEAN CORPUSCULAR HGB CONC 33.5 g/dL (32.4-35.8); MEAN PLATELET VOLUME 8.1 fL (7.4-10.4); MONOCYTES % (AUTO) 9 % (2-9); NEUTROPHILS % (AUTO) 72 % (42-75); PLATELET COUNT 217 x10^3/uL (130-400); RED BLOOD COUNT 4.22 x10^6/uL (3.82-5.3); RED CELL DISTRIBUTION WIDTH 16.6 % (9.6-15.2)
[2020-04-23] MEDS ORDERED: MORPHINE SULFATE 4 MG/ML, 1ML IVPush PRN (11:00)
[2020-04-23] MEDS ORDERED: ONDANSETRON 2MG/ML, 2ML IVPush ONE (11:00)
[2020-04-23 11:01] LABS: MD NO
[2020-04-23] MEDS ORDERED: CEFTRIAXONE PMX 1GM/50ML 50 ML ONE (11:05)
--- NOTE | 2020-04-23 11:10 | NUR ---
PER ED SUP NO CAMERA AVAILABLE FOR PICTURE OF WOUND. WOUND CONSULT ORDERED.
--- NOTE | 2020-04-23 11:13 | NUR ---
ANTERIOR RT LWR LEG WOUND 6.5CM X 5CM X 0.5CM POSTERIOR RT LWR LEG WOUND 8CM X 4 CM X 1CM
--- NOTE | 2020-04-23 11:24 | NUR ---
RAD IN ROOM.
[2020-04-23] MEDS ORDERED: SODIUM CHLORIDE FLUSH 10ML SYR IVF PRN (12:00)
--- NOTE | 2020-04-23 12:06 | NUR ---
ADMITTING PROVIDER AT BEDSIDE.
--- NOTE | 2020-04-23 12:09 | NUR ---
REPORT GIVEN TO VERA VOSS. PT RESTING ON GURNEY W/ CALL LIGHT IN REACH AND SIDE RAILS UPX2. RESP EVEN AND UNLABORED, MARTHA. HOSPITALIST AT BEDSIDE.
[2020-04-23 14:00] VITALS: BP 129/69
[2020-04-23] MEDS ORDERED: morphine SULFATE 10 MG/ML, 1ML IVPush PRN (14:00)
[2020-04-23] MEDS ORDERED: ONDANSETRON 2MG/ML, 2ML IVPush PRN (14:00)
[2020-04-23] MEDS ORDERED: GLUCAGON 1 MG IM PRN (14:00)
[2020-04-23] MEDS ORDERED: ENALAPRILAT 1.25 MG/ML, 2ML IVPush PRN (14:00)
[2020-04-23] MEDS ORDERED: DOCUSATE 100 MG CAPSULE PO PRN (14:00)
[2020-04-23] MEDS ORDERED: DEXTROSE 4 GM TAB.CHEW PO PRN (14:00)
[2020-04-23] MEDS ORDERED: POLYETHYLENE GLYCOL 17 GM PACKET PO PRN (14:00)
[2020-04-23] MEDS ORDERED: ONDANSETRON ODT 4 MG PO PRN (14:00)
[2020-04-23] MEDS ORDERED: DEXTROSE 50%, 50ML SYRINGE IVPush PRN (14:00)
[2020-04-23] MEDS ORDERED: PANT40GR PO (15:16)
[2020-04-23] MEDS ORDERED: METF-734 PO (15:20)
[2020-04-23] MEDS ORDERED: GABA300C PO (15:23)
[2020-04-23] MEDS: MEROPENEM 2 GM in SODIUM CHLORIDE 0.9% 100 ML IV SCH (15:53)
[2020-04-23] MEDS: SODIUM CHLORIDE 0.9% 1,000 ML IV SCH (15:53)
[2020-04-23] MEDS: INSULIN LISPRO 100 UNITS/ML, PEN SQ-INSULIN SCH ×2 (16:00→21:30)
[2020-04-23] MEDS ORDERED: GABAPENTIN 300 MG CAPSULE ONE (16:07)
[2020-04-23] MEDS ORDERED: HYDROcodone/APAP 5/325 TABLET ONE (16:07)
[2020-04-23] MEDS: GABAPENTIN 300 MG CAPSULE PO SCH ×2 (16:12→23:35)
[2020-04-23] MEDS: HYDROcodone/APAP 5/325 TABLET PO PRN ×2 (16:12→23:48)
--- NOTE | 2020-04-23 20:56 | NUR ---
PT SLEEPING SOUNDLY NO DISTRESS NOTED VITALS CHARTED MEDS GIVEN..
[2020-04-23] MEDS: ENOXAPARIN 40 MG/0.4 ML SQ SCH (23:30)
[2020-04-23] MEDS: SODIUM CHLORIDE FLUSH 10ML SYR IVF SCH (23:36)
[2020-04-24] MEDS: MEROPENEM 2 GM in SODIUM CHLORIDE 0.9% 100 ML IV SCH ×4 (00:24→23:57)
[2020-04-24] MEDS: SODIUM CHLORIDE 0.9% 1,000 ML IV SCH ×3 (01:19→23:57)
[2020-04-24 03:58] VITALS: BP 96/62
[2020-04-24 04:26] LABS: BASOPHILS % (AUTO) 0 % (0-1); EOSINOPHILS % (AUTO) 2 % (1-7); LYMPHOCYTES % (AUTO) 27 % (22-44); MEAN CORPUSCULAR HEMOGLOBIN 27.2 pg (27.0-34.8); MEAN CORPUSCULAR HGB CONC 33.1 g/dL (32.4-35.8); MEAN PLATELET VOLUME 7.9 fL (7.4-10.4); MONOCYTES % (AUTO) 10 % (2-9); NEUTROPHILS % (AUTO) 61 % (42-75); PLATELET COUNT 188 x10^3/uL (130-400); RED BLOOD COUNT 3.76 x10^6/uL (3.82-5.3); RED CELL DISTRIBUTION WIDTH 16.3 % (9.6-15.2)
[2020-04-24 04:27] LABS: MD NO
[2020-04-24 04:35] LABS: ALBUMIN 2.5 g/dL (3.4-5.0); ANION GAP 4 mmol/L (5-15); CALCIUM 8.1 mg/dL (8.5-10.1); CHLORIDE 107 mmol/L (98-107)
[2020-04-24 04:39] LABS: ALANINE AMINOTRANSFERASE 12 U/L (12-78); ALKALINE PHOSPHATASE 62 U/L (45-117); BILIRUBIN,TOTAL 0.4 mg/dL (0.2-1.0); CREATININE 0.84 mg/dL (0.55-1.02); TOTAL PROTEIN 6.2 g/dL (6.4-8.2)
[2020-04-24] MEDS: PANTOPRAZOLE 40MG TABLET PO SCH (05:25)
[2020-04-24] MEDS: INSULIN LISPRO 100 UNITS/ML, PEN SQ-INSULIN SCH ×4 (07:00→20:03)
[2020-04-24] MEDS ORDERED: GADOTERATE 10 MMOL/20 ML VIAL ONE (07:18)
[2020-04-24] MEDS: GABAPENTIN 300 MG CAPSULE PO SCH ×3 (08:30→20:08)
[2020-04-24] MEDS: SENNA/DOCUSATE TABLET PO SCH (08:31)
[2020-04-24] MEDS: SODIUM CHLORIDE FLUSH 10ML SYR IVF SCH ×2 (08:32→20:08)
[2020-04-24] MEDS: HYDROcodone/APAP 5/325 TABLET PO PRN (08:32)
[2020-04-24 09:16] VITALS: BP 108/75
[2020-04-24 15:28] VITALS: BP 114/79
[2020-04-24 18:33] VITALS: BP 127/77
[2020-04-24] MEDS: ENOXAPARIN 40 MG/0.4 ML SQ SCH (20:09)
[2020-04-25 00:40] VITALS: BP 117/78
[2020-04-25] MEDS: PANTOPRAZOLE 40MG TABLET PO SCH (06:00)
[2020-04-25 06:29] LABS: BASOPHILS % (AUTO) 0 % (0-1); EOSINOPHILS % (AUTO) 2 % (1-7); LYMPHOCYTES % (AUTO) 24 % (22-44); MEAN CORPUSCULAR HEMOGLOBIN 27.5 pg (27.0-34.8); MEAN CORPUSCULAR HGB CONC 33.2 g/dL (32.4-35.8); MEAN PLATELET VOLUME 7.8 fL (7.4-10.4); MONOCYTES % (AUTO) 7 % (2-9); NEUTROPHILS % (AUTO) 67 % (42-75); PLATELET COUNT 209 x10^3/uL (130-400); RED BLOOD COUNT 3.92 x10^6/uL (3.82-5.3); RED CELL DISTRIBUTION WIDTH 15.9 % (9.6-15.2)
[2020-04-25 06:43] LABS: ANION GAP 5 mmol/L (5-15); CALCIUM 8.5 mg/dL (8.5-10.1); CHLORIDE 110 mmol/L (98-107); CREATININE 0.79 mg/dL (0.55-1.02)
[2020-04-25 06:48] VITALS: BP 151/84
[2020-04-25 06:55] LABS: MD NO
[2020-04-25] MEDS: INSULIN LISPRO 100 UNITS/ML, PEN SQ-INSULIN SCH ×2 (07:00→11:00)
[2020-04-25] MEDS: SODIUM CHLORIDE FLUSH 10ML SYR IVF SCH ×2 (08:06→20:36)
[2020-04-25] MEDS: SENNA/DOCUSATE TABLET PO SCH (08:06)
[2020-04-25] MEDS: SODIUM CHLORIDE 0.9% 1,000 ML IV SCH ×2 (08:07→15:29)
[2020-04-25] MEDS: MEROPENEM 2 GM in SODIUM CHLORIDE 0.9% 100 ML IV SCH ×3 (08:07→23:57)
[2020-04-25] MEDS: GABAPENTIN 300 MG CAPSULE PO SCH ×3 (08:07→20:36)
[2020-04-25 12:24] VITALS: BP 123/79
[2020-04-25] MEDS: HYDROcodone/APAP 5/325 TABLET PO PRN (17:43)
[2020-04-25 19:32] VITALS: BP 131/83
[2020-04-25] MEDS: ENOXAPARIN 40 MG/0.4 ML SQ SCH (20:35)
[2020-04-25] MEDS: metFORMIN XR 500 MG TAB.ER.24H PO SCH (20:36)
[2020-04-26 01:02] VITALS: BP 123/85
[2020-04-26] MEDS: SODIUM CHLORIDE 0.9% 1,000 ML IV SCH ×2 (02:40→16:40)
[2020-04-26] MEDS: PANTOPRAZOLE 40MG TABLET PO SCH (06:23)
[2020-04-26 06:32] LABS: BASOPHILS % (AUTO) 1 % (0-1); EOSINOPHILS % (AUTO) 2 % (1-7); LYMPHOCYTES % (AUTO) 28 % (22-44); MEAN CORPUSCULAR HEMOGLOBIN 27.5 pg (27.0-34.8); MEAN CORPUSCULAR HGB CONC 33.2 g/dL (32.4-35.8); MEAN PLATELET VOLUME 7.5 fL (7.4-10.4); MONOCYTES % (AUTO) 7 % (2-9); NEUTROPHILS % (AUTO) 62 % (42-75); PLATELET COUNT 273 x10^3/uL (130-400); RED BLOOD COUNT 4.23 x10^6/uL (3.82-5.3); RED CELL DISTRIBUTION WIDTH 15.5 % (9.6-15.2)
[2020-04-26 06:44] LABS: ANION GAP 3 mmol/L (5-15); CALCIUM 9.2 mg/dL (8.5-10.1); CHLORIDE 107 mmol/L (98-107)
[2020-04-26 06:46] LABS: CREATININE 0.77 mg/dL (0.55-1.02)
[2020-04-26 07:39] VITALS: BP 112/77
[2020-04-26 07:46] LABS: MD SCAN
[2020-04-26] MEDS: MEROPENEM 2 GM in SODIUM CHLORIDE 0.9% 100 ML IV SCH ×2 (08:16→17:09)
[2020-04-26] MEDS: MULTIVITAMIN 1 TABLET PO SCH (11:01)
[2020-04-26] MEDS: SENNA/DOCUSATE TABLET PO SCH (11:01)
[2020-04-26] MEDS: GABAPENTIN 300 MG CAPSULE PO SCH ×3 (11:01→20:04)
[2020-04-26] MEDS: SODIUM CHLORIDE FLUSH 10ML SYR IVF SCH ×2 (11:02→20:05)
[2020-04-26] MEDS ORDERED: FUROSEMIDE 20 MG/2 ML IV ONE (12:30)
[2020-04-26 13:16] VITALS: BP 123/80
[2020-04-26 19:04] VITALS: BP 120/81
[2020-04-26] MEDS: metFORMIN XR 500 MG TAB.ER.24H PO SCH (20:04)
[2020-04-26] MEDS: ENOXAPARIN 40 MG/0.4 ML SQ SCH (20:05)
[2020-04-27] MEDS: MEROPENEM 2 GM in SODIUM CHLORIDE 0.9% 100 ML IV SCH ×3 (01:20→22:46)
[2020-04-27 01:27] VITALS: BP 137/85
[2020-04-27 05:26] LABS: ANION GAP 3 mmol/L (5-15); CALCIUM 8.9 mg/dL (8.5-10.1); CHLORIDE 108 mmol/L (98-107)
[2020-04-27] MEDS: SODIUM CHLORIDE 0.9% 1,000 ML IV SCH (06:03)
[2020-04-27] MEDS: PANTOPRAZOLE 40MG TABLET PO SCH (06:03)
[2020-04-27 07:26] VITALS: BP 135/83
[2020-04-27] MEDS: GABAPENTIN 300 MG CAPSULE PO SCH ×3 (11:26→22:46)
[2020-04-27] MEDS: SENNA/DOCUSATE TABLET PO SCH (11:27)
[2020-04-27] MEDS: MULTIVITAMIN 1 TABLET PO SCH (11:27)
[2020-04-27] MEDS: SODIUM CHLORIDE FLUSH 10ML SYR IVF SCH ×2 (11:28→21:00)
[2020-04-27 12:37] VITALS: BP 138/85
[2020-04-27] MEDS: ACETAMINOPHEN 325 MG TABLET PO PRN (16:23)
[2020-04-27 20:25] VITALS: BP 131/82
[2020-04-27] MEDS: metFORMIN XR 500 MG TAB.ER.24H PO SCH (22:46)
[2020-04-27] MEDS: ENOXAPARIN 40 MG/0.4 ML SQ SCH (22:47)
[2020-04-28 01:48] VITALS: BP 138/81
[2020-04-28 04:54] LABS: BASOPHILS % (AUTO) 0 % (0-1); EOSINOPHILS % (AUTO) 3 % (1-7); LYMPHOCYTES % (AUTO) 30 % (22-44); MEAN CORPUSCULAR HEMOGLOBIN 27.4 pg (27.0-34.8); MEAN CORPUSCULAR HGB CONC 33.7 g/dL (32.4-35.8); MEAN PLATELET VOLUME 7.7 fL (7.4-10.4); MONOCYTES % (AUTO) 8 % (2-9); NEUTROPHILS % (AUTO) 59 % (42-75); PLATELET COUNT 262 x10^3/uL (130-400); RED BLOOD COUNT 4.07 x10^6/uL (3.82-5.3); RED CELL DISTRIBUTION WIDTH 15.8 % (9.6-15.2)
[2020-04-28 04:56] LABS: ALBUMIN 2.7 g/dL (3.4-5.0); ANION GAP 4 mmol/L (5-15); CALCIUM 8.8 mg/dL (8.5-10.1); CHLORIDE 109 mmol/L (98-107)
[2020-04-28 05:00] LABS: MD NO
[2020-04-28 05:04] LABS: ALANINE AMINOTRANSFERASE 15 U/L (12-78); ALKALINE PHOSPHATASE 64 U/L (45-117); BILIRUBIN,TOTAL 0.3 mg/dL (0.2-1.0); CREATININE 0.79 mg/dL (0.55-1.02); TOTAL PROTEIN 6.9 g/dL (6.4-8.2)
[2020-04-28 05:07] LABS: HCT (SEDRATE) 33.2 % (34.6-47.8)
[2020-04-28] MEDS: PANTOPRAZOLE 40MG TABLET PO SCH (06:51)
[2020-04-28] MEDS: MEROPENEM 2 GM in SODIUM CHLORIDE 0.9% 100 ML IV SCH ×3 (06:56→23:58)
[2020-04-28 08:02] VITALS: BP 152/88
[2020-04-28] MEDS: SENNA/DOCUSATE TABLET PO SCH (09:00)
[2020-04-28] MEDS: GABAPENTIN 300 MG CAPSULE PO SCH ×3 (09:15→23:25)
[2020-04-28] MEDS: MULTIVITAMIN 1 TABLET PO SCH (09:16)
[2020-04-28] MEDS: SODIUM CHLORIDE FLUSH 10ML SYR IVF SCH ×2 (09:16→19:43)
[2020-04-28] MEDS: ACETAMINOPHEN 325 MG TABLET PO PRN ×2 (09:16→19:43)
[2020-04-28] MEDS ORDERED: SODIUM CHLORIDE 0.9% 1,000 ML IV SCH (14:00)
[2020-04-28 15:39] VITALS: BP 117/79
[2020-04-28 19:11] VITALS: BP 120/75
[2020-04-28] MEDS: metFORMIN XR 500 MG TAB.ER.24H PO SCH (19:43)
[2020-04-28] MEDS: ENOXAPARIN 40 MG/0.4 ML SQ SCH (23:00)
[2020-04-29 01:05] VITALS: BP 139/86
[2020-04-29 04:40] LABS: BASOPHILS % (AUTO) 0 % (0-1); EOSINOPHILS % (AUTO) 2 % (1-7); LYMPHOCYTES % (AUTO) 24 % (22-44); MEAN CORPUSCULAR HEMOGLOBIN 27.3 pg (27.0-34.8); MEAN CORPUSCULAR HGB CONC 33.1 g/dL (32.4-35.8); MEAN PLATELET VOLUME 7.4 fL (7.4-10.4); MONOCYTES % (AUTO) 6 % (2-9); NEUTROPHILS % (AUTO) 67 % (42-75); PLATELET COUNT 244 x10^3/uL (130-400); RED BLOOD COUNT 3.87 x10^6/uL (3.82-5.3); RED CELL DISTRIBUTION WIDTH 16.1 % (9.6-15.2)
[2020-04-29 04:52] LABS: CALCIUM 8.7 mg/dL (8.5-10.1); CHLORIDE 110 mmol/L (98-107)
[2020-04-29 04:55] LABS: ANION GAP 5 mmol/L (5-15); CREATININE 0.74 mg/dL (0.55-1.02)
[2020-04-29 05:05] LABS: MD NO
[2020-04-29] MEDS: PANTOPRAZOLE 40MG TABLET PO SCH (05:28)
[2020-04-29 06:29] VITALS: BP 134/83
[2020-04-29] MEDS: GABAPENTIN 300 MG CAPSULE PO SCH ×3 (08:25→20:49)
[2020-04-29] MEDS: MEROPENEM 2 GM in SODIUM CHLORIDE 0.9% 100 ML IV SCH ×2 (08:25→16:51)
[2020-04-29] MEDS: SENNA/DOCUSATE TABLET PO SCH (08:25)
[2020-04-29] MEDS: MULTIVITAMIN 1 TABLET PO SCH (08:25)
[2020-04-29] MEDS: SODIUM CHLORIDE FLUSH 10ML SYR IVF SCH ×2 (08:26→20:49)
[2020-04-29] MEDS: ACETAMINOPHEN 325 MG TABLET PO PRN (11:39)
[2020-04-29 12:12] VITALS: BP 122/81
[2020-04-29] MEDS ORDERED: FUROSEMIDE 20 MG TABLET PO SCH (14:00)
[2020-04-29] MEDS: HYDROcodone/APAP 5/325 TABLET PO PRN (16:55)
[2020-04-29 19:23] VITALS: BP 136/79
[2020-04-29] MEDS: metFORMIN XR 500 MG TAB.ER.24H PO SCH (20:49)
[2020-04-29] MEDS: DIPHENHYDRAMINE 50 MG CAPSULE PO PRN (23:42)
[2020-04-29] MEDS: ENOXAPARIN 40 MG/0.4 ML SQ SCH (23:42)
[2020-04-30] MEDS: MEROPENEM 2 GM in SODIUM CHLORIDE 0.9% 100 ML IV SCH ×3 (00:26→16:11)
[2020-04-30 00:42] VITALS: BP 128/83
[2020-04-30] MEDS: PANTOPRAZOLE 40MG TABLET PO SCH (05:33)
[2020-04-30 06:01] LABS: BASOPHILS % (AUTO) 1 % (0-1); EOSINOPHILS % (AUTO) 2 % (1-7); LYMPHOCYTES % (AUTO) 27 % (22-44); MEAN CORPUSCULAR HEMOGLOBIN 27.7 pg (27.0-34.8); MEAN CORPUSCULAR HGB CONC 33.8 g/dL (32.4-35.8); MEAN PLATELET VOLUME 7.3 fL (7.4-10.4); MONOCYTES % (AUTO) 7 % (2-9); NEUTROPHILS % (AUTO) 64 % (42-75); PLATELET COUNT 249 x10^3/uL (130-400); RED BLOOD COUNT 3.95 x10^6/uL (3.82-5.3); RED CELL DISTRIBUTION WIDTH 15.8 % (9.6-15.2)
[2020-04-30 06:06] LABS: CALCIUM 8.6 mg/dL (8.5-10.1); CHLORIDE 109 mmol/L (98-107); CREATININE 0.74 mg/dL (0.55-1.02)
[2020-04-30 06:27] LABS: ANION GAP 4 mmol/L (5-15)
[2020-04-30 06:30] LABS: MD NO
[2020-04-30] MEDS ORDERED: FUROSEMIDE 20 MG TABLET PO ONE (07:00)
[2020-04-30 07:05] VITALS: BP 130/79
[2020-04-30] MEDS: GABAPENTIN 300 MG CAPSULE PO SCH ×3 (08:28→21:34)
[2020-04-30] MEDS: SENNA/DOCUSATE TABLET PO SCH (08:28)
[2020-04-30] MEDS: MULTIVITAMIN 1 TABLET PO SCH (08:28)
[2020-04-30] MEDS: SODIUM CHLORIDE FLUSH 10ML SYR IVF SCH ×2 (08:32→21:38)
[2020-04-30 12:17] VITALS: BP 102/74
[2020-04-30] MEDS: ACETAMINOPHEN 325 MG TABLET PO PRN (16:21)
[2020-04-30] MEDS ORDERED: PROPOFOL 10 MG/ML, 20ML ONE (19:04)
[2020-04-30] MEDS ORDERED: MIDAZOLAM 1 MG/ML, 2ML ONE (19:08)
[2020-04-30] MEDS ORDERED: FENTANYL PF 100 MCG/2ML ONE (19:11)
[2020-04-30] MEDS ORDERED: BUPIVACAINE/PF 0.5% ONE (19:12)
[2020-04-30] MEDS ORDERED: ONDANSETRON 2MG/ML, 2ML IVPush PRN (19:30)
[2020-04-30] MEDS ORDERED: FENTANYL PF 100 MCG/2ML IV PRN (19:30)
[2020-04-30] MEDS ORDERED: OXYcodone 5 MG/5 ML ORAL.SOL UDC PO PRN (19:30)
[2020-04-30] MEDS ORDERED: LORazepam 2 MG/ML, 1ML IVPush PRN (19:30)
[2020-04-30] MEDS ORDERED: PROMETHAZINE 25 MG SUPP PR PRN (19:30)
[2020-04-30] MEDS ORDERED: PROMETHAZINE 25 MG/ML, 1ML IVPush PRN (19:30)
[2020-04-30] MEDS ORDERED: METHOCARBAMOL 1,000 MG in DEXTROSE 5% 100 ML IV PRN (19:30)
[2020-04-30] MEDS ORDERED: ACETAMINOPHEN 325 MG TABLET PO PRN (19:30)
[2020-04-30 20:30] VITALS: BP 132/79
[2020-04-30 20:47] VITALS: BP 118/77
[2020-04-30] MEDS: metFORMIN XR 500 MG TAB.ER.24H PO SCH (21:34)
[2020-04-30] MEDS: DIPHENHYDRAMINE 50 MG CAPSULE PO PRN (21:38)
[2020-05-01] MEDS: ENOXAPARIN 40 MG/0.4 ML SQ SCH ×2 (00:19→23:55)
[2020-05-01] MEDS: MEROPENEM 2 GM in SODIUM CHLORIDE 0.9% 100 ML IV SCH ×2 (00:19→07:54)
[2020-05-01 00:55] VITALS: BP 110/74
[2020-05-01 01:17] VITALS: BP 120/74
[2020-05-01] MEDS: PANTOPRAZOLE 40MG TABLET PO SCH (05:54)
[2020-05-01 07:04] VITALS: BP 125/77
[2020-05-01] MEDS: MULTIVITAMIN 1 TABLET PO SCH (07:54)
[2020-05-01] MEDS: SODIUM CHLORIDE FLUSH 10ML SYR IVF SCH ×2 (07:54→21:00)
[2020-05-01] MEDS: SENNA/DOCUSATE TABLET PO SCH (07:54)
[2020-05-01] MEDS: GABAPENTIN 300 MG CAPSULE PO SCH ×3 (07:54→22:07)
[2020-05-01] MEDS ORDERED: HYDROCORTISONE CRM 1%, 30GM TP PRN (12:00)
[2020-05-01 13:21] VITALS: BP 112/78
[2020-05-01] MEDS: CEFAZOLIN PMX 2GM/50ML 50 ML IVPB SCH ×2 (14:55→22:58)
[2020-05-01] MEDS: HYDROcodone/APAP 5/325 TABLET PO PRN (16:29)
[2020-05-01 22:03] VITALS: BP 133/85
[2020-05-01] MEDS: metFORMIN XR 500 MG TAB.ER.24H PO SCH (22:07)
[2020-05-01] MEDS: ACETAMINOPHEN 325 MG TABLET PO PRN (23:01)
[2020-05-02 01:07] VITALS: BP 117/77
[2020-05-02] MEDS: PANTOPRAZOLE 40MG TABLET PO SCH (05:47)
[2020-05-02 06:02] LABS: BASOPHILS % (AUTO) 0 % (0-1); EOSINOPHILS % (AUTO) 3 % (1-7); LYMPHOCYTES % (AUTO) 30 % (22-44); MEAN CORPUSCULAR HEMOGLOBIN 27.5 pg (27.0-34.8); MEAN CORPUSCULAR HGB CONC 34.1 g/dL (32.4-35.8); MEAN PLATELET VOLUME 7.7 fL (7.4-10.4); MONOCYTES % (AUTO) 7 % (2-9); NEUTROPHILS % (AUTO) 60 % (42-75); PLATELET COUNT 256 x10^3/uL (130-400); RED BLOOD COUNT 4.08 x10^6/uL (3.82-5.3)
[2020-05-02 06:05] LABS: ANION GAP 5 mmol/L (5-15); CALCIUM 8.8 mg/dL (8.5-10.1); CHLORIDE 107 mmol/L (98-107)
[2020-05-02 06:07] LABS: CREATININE 0.91 mg/dL (0.55-1.02)
[2020-05-02 06:11] LABS: MD NO
[2020-05-02] MEDS: SENNA/DOCUSATE TABLET PO SCH (07:42)
[2020-05-02] MEDS: GABAPENTIN 300 MG CAPSULE PO SCH ×3 (07:42→23:06)
[2020-05-02] MEDS: SODIUM CHLORIDE FLUSH 10ML SYR IVF SCH ×2 (07:42→20:44)
[2020-05-02] MEDS: MULTIVITAMIN 1 TABLET PO SCH (07:42)
[2020-05-02] MEDS: CEFAZOLIN PMX 2GM/50ML 50 ML IVPB SCH ×3 (07:42→23:05)
[2020-05-02 08:39] VITALS: BP 108/74
[2020-05-02 12:34] VITALS: BP 109/76
[2020-05-02 19:40] VITALS: BP 124/82
[2020-05-02] MEDS: metFORMIN XR 500 MG TAB.ER.24H PO SCH (20:44)
[2020-05-02] MEDS: ENOXAPARIN 40 MG/0.4 ML SQ SCH (23:06)
[2020-05-03 00:35] VITALS: BP 127/83
[2020-05-03] MEDS: PANTOPRAZOLE 40MG TABLET PO SCH (05:50)
[2020-05-03] MEDS: HYDROcodone/APAP 5/325 TABLET PO PRN ×3 (05:52→23:09)
[2020-05-03 06:30] LABS: BASOPHILS % (AUTO) 0 % (0-1); EOSINOPHILS % (AUTO) 3 % (1-7); LYMPHOCYTES % (AUTO) 27 % (22-44); MEAN CORPUSCULAR HEMOGLOBIN 27.4 pg (27.0-34.8); MEAN CORPUSCULAR HGB CONC 33.4 g/dL (32.4-35.8); MEAN PLATELET VOLUME 7.9 fL (7.4-10.4); MONOCYTES % (AUTO) 6 % (2-9); NEUTROPHILS % (AUTO) 64 % (42-75); PLATELET COUNT 261 x10^3/uL (130-400); RED BLOOD COUNT 4.03 x10^6/uL (3.82-5.3)
[2020-05-03 06:34] LABS: MD NO
[2020-05-03 06:41] LABS: ANION GAP 6 mmol/L (5-15); CALCIUM 8.8 mg/dL (8.5-10.1); CHLORIDE 110 mmol/L (98-107); CREATININE 0.93 mg/dL (0.55-1.02)
[2020-05-03] MEDS: SENNA/DOCUSATE TABLET PO SCH (08:11)
[2020-05-03] MEDS: CEFAZOLIN PMX 2GM/50ML 50 ML IVPB SCH ×3 (08:12→23:09)
[2020-05-03] MEDS: MULTIVITAMIN 1 TABLET PO SCH (08:12)
[2020-05-03] MEDS: GABAPENTIN 300 MG CAPSULE PO SCH ×3 (08:13→19:59)
[2020-05-03] MEDS: SODIUM CHLORIDE FLUSH 10ML SYR IVF SCH ×2 (08:13→19:59)
[2020-05-03 08:21] VITALS: BP 121/80
[2020-05-03 14:30] VITALS: BP 134/80
[2020-05-03 19:20] VITALS: BP 122/77
[2020-05-03] MEDS: metFORMIN XR 500 MG TAB.ER.24H PO SCH (19:59)
[2020-05-03] MEDS: ENOXAPARIN 40 MG/0.4 ML SQ SCH (23:09)
[2020-05-04 02:43] VITALS: BP 126/74
[2020-05-04] MEDS: PANTOPRAZOLE 40MG TABLET PO SCH (05:03)
[2020-05-04 05:49] LABS: ANION GAP 7 mmol/L (5-15); CALCIUM 8.6 mg/dL (8.5-10.1); CHLORIDE 109 mmol/L (98-107); CREATININE 0.89 mg/dL (0.55-1.02)
[2020-05-04 05:50] LABS: BASOPHILS % (AUTO) 0 % (0-1); EOSINOPHILS % (AUTO) 2 % (1-7); LYMPHOCYTES % (AUTO) 24 % (22-44); MEAN CORPUSCULAR HEMOGLOBIN 27.4 pg (27.0-34.8); MEAN CORPUSCULAR HGB CONC 33.4 g/dL (32.4-35.8); MEAN PLATELET VOLUME 8.1 fL (7.4-10.4); MONOCYTES % (AUTO) 8 % (2-9); NEUTROPHILS % (AUTO) 66 % (42-75); PLATELET COUNT 227 x10^3/uL (130-400); RED BLOOD COUNT 3.79 x10^6/uL (3.82-5.3); RED CELL DISTRIBUTION WIDTH 16.5 % (9.6-15.2)
[2020-05-04 05:58] LABS: MD NO
[2020-05-04 07:08] VITALS: BP 129/80
[2020-05-04] MEDS: GABAPENTIN 300 MG CAPSULE PO SCH ×3 (08:24→20:19)
[2020-05-04] MEDS: MULTIVITAMIN 1 TABLET PO SCH (08:24)
[2020-05-04] MEDS: CEFAZOLIN PMX 2GM/50ML 50 ML IVPB SCH ×3 (08:24→23:37)
[2020-05-04] MEDS: SENNA/DOCUSATE TABLET PO SCH (08:24)
[2020-05-04] MEDS: SODIUM CHLORIDE FLUSH 10ML SYR IVF SCH ×2 (08:24→20:19)
[2020-05-04 13:09] VITALS: BP 123/84
[2020-05-04] MEDS: HYDROcodone/APAP 5/325 TABLET PO PRN ×2 (18:24→23:36)
[2020-05-04 19:11] VITALS: BP 123/74
[2020-05-04] MEDS: metFORMIN XR 500 MG TAB.ER.24H PO SCH (20:19)
[2020-05-04] MEDS: ENOXAPARIN 40 MG/0.4 ML SQ SCH (23:37)
[2020-05-05 01:25] VITALS: BP 115/71
[2020-05-05] MEDS: PANTOPRAZOLE 40MG TABLET PO SCH (05:28)
[2020-05-05 06:01] LABS: HCT (SEDRATE) 30.7 % (34.6-47.8)
[2020-05-05 06:02] LABS: BASOPHILS % (AUTO) 0 % (0-1); EOSINOPHILS % (AUTO) 3 % (1-7); LYMPHOCYTES % (AUTO) 33 % (22-44); MEAN CORPUSCULAR HEMOGLOBIN 27.7 pg (27.0-34.8); MEAN CORPUSCULAR HGB CONC 33.6 g/dL (32.4-35.8); MEAN PLATELET VOLUME 8.1 fL (7.4-10.4); MONOCYTES % (AUTO) 8 % (2-9); NEUTROPHILS % (AUTO) 55 % (42-75); PLATELET COUNT 220 x10^3/uL (130-400); RED BLOOD COUNT 3.69 x10^6/uL (3.82-5.3); RED CELL DISTRIBUTION WIDTH 16.3 % (9.6-15.2)
[2020-05-05 06:03] LABS: MD NO
[2020-05-05 06:11] LABS: ALANINE AMINOTRANSFERASE 10 U/L (12-78); ALBUMIN 2.8 g/dL (3.4-5.0); ANION GAP 6 mmol/L (5-15); CALCIUM 8.6 mg/dL (8.5-10.1); CHLORIDE 112 mmol/L (98-107); CREATININE 0.91 mg/dL (0.55-1.02)
[2020-05-05 06:19] LABS: ALKALINE PHOSPHATASE 70 U/L (45-117); BILIRUBIN,TOTAL 0.3 mg/dL (0.2-1.0); TOTAL PROTEIN 6.7 g/dL (6.4-8.2)
[2020-05-05] MEDS: CEFAZOLIN PMX 2GM/50ML 50 ML IVPB SCH (07:04)
[2020-05-05 07:44] VITALS: BP 126/85
[2020-05-05] MEDS: MULTIVITAMIN 1 TABLET PO SCH (08:33)
[2020-05-05] MEDS: SENNA/DOCUSATE TABLET PO SCH (08:33)
[2020-05-05] MEDS: GABAPENTIN 300 MG CAPSULE PO SCH (08:33)
[2020-05-05] MEDS: SODIUM CHLORIDE FLUSH 10ML SYR IVF SCH (08:33)
[2020-05-05] MEDS ORDERED: CEPHALEXIN 500 MG CAPSULE PO SCH (09:00)
[2020-05-05] MEDS ORDERED: CEPH-376 PO (12:03)
[2020-05-05 12:46] VITALS: BP 115/83
[2020-05-05] MEDS ORDERED: HYDR-3240 PO (15:44)
== END 2020-05-05 15:34 | disposition home or self-care (01) | DRG 571 ==
LOC: ED 10:23 → EDIP 11:49 → 3N 22:38 → DCLOUNGE 05-05 15:15
PROVIDERS: ADMIT Family Medicine; ATTEND Family Medicine
PROC: 0JBN0ZZ Excision of Right Lower Leg Subcutaneous Tissue and Fascia, Open Approach (ICD-10-PCS; principal; 2020-04-23)
DX: L03.115 Cellulitis of right lower limb (principal); E44.1 Mild protein-calorie malnutrition; L97.919 Non-pressure chronic ulcer of unspecified part of right lower leg with unspecified severity; N17.9 Acute kidney failure, unspecified; Z20.828 Contact with and (suspected) exposure to other viral communicable diseases; B95.61 Methicillin susceptible Staphylococcus aureus infection as the cause of diseases classified elsewhere; D63.8 Anemia in other chronic diseases classified elsewhere; E11.9 Type 2 diabetes mellitus without complications; E66.01 Morbid (severe) obesity due to excess calories; G89.4 Chronic pain syndrome; I87.8 Other specified disorders of veins; Z83.3 Family history of diabetes mellitus; Z80.9 Family history of malignant neoplasm, unspecified; Z68.35 Body mass index [BMI] 35.0-35.9, adult; Z87.891 Personal history of nicotine dependence; Z87.11 Personal history of peptic ulcer disease; Z90.49 Acquired absence of other specified parts of digestive tract
CPT/HCPCS: 36415; 73590; 96365; 96375; 99285; A9575; S0020; 80048; 80053; 82040; 82962; 83036; 83605; 85025; 85651; 86140; 87040; 87070; 87075; 87077; 87147; 87186; 87205; 87635; 88304; 93922; G0378; J0690; J0696; J1650; J2185; J2250; J2405; J2704; J3010; J1940; J2270; J7030